=== PATIENT | male | born 1935 | race Caucasian/White ===

== ENCOUNTER 2017-01-26 08:18 | Emergency (ER) | payer OTHER ==
[~2017-01-26] VITALS: Ht 167.6 cm; Wt 84.0 kg
[2017-01-26 08:21] VITALS: Ht 167.6 cm; Wt 84.0 kg
[2017-01-26 09:16] LABS: BASOPHILS % 0.7 % (0.0-2.0); EOSINOPHILS % 0.3 % (0.0-7.0); LYMPHOCYTES % 15.9 % (15.0-51.0); MEAN CORPUSCULAR HEMOGLOBIN 28.1 pg (29.0-33.0); MEAN CORPUSCULAR HGB CONC 33.3 g/dl (32.0-37.0); MEAN CORPUSCULAR VOLUME 84.4 fl (82.0-101.0); MEAN PLATELET VOLUME 10.1 fl (7.4-10.4); MONOCYTE # 0.6 10^3/ul (0.3-0.9); MONOCYTES % 9.5 % (0.0-11.0); NEUTROPHIL # 4.4 10^3/ul (1.6-7.5); NEUTROPHILS % 73.3 % (39.0-77.0); PLATELET COUNT 248 10^3/UL (140-415); RED BLOOD COUNT 5.69 10^6/ul (4.70-6.10); RED CELL DISTRIBUTION WIDTH 13.4 % (11.5-14.5)
--- NOTE | 2017-01-26 09:23 | ERD ---
ER Documentation Chief Complaint Chief Complaint painful urination since may, urinary retention, next urologist appt. 02/05 HPI This is a 81-year-old Hungarian-speaking male with a history of hypertension and benign prostatic hypertrophy. The patient takes Flomax on a daily basis 0.4 mg. Patient ran out of his Flomax 48 hours prior to arrival. He indicates that he has had decreased urinary output for the past 6 days. Indicated 10 minutes prior to arrival he was able to urinate but only for drops. There is been no hematuria. He has had no fevers no shaking or chills. He is scheduled to see his urologist on February 05, 2017 for a medication refill of his Flomax. He presents to the emergency department today for urinary retention and mild abdominal distention. He denies any back pain. He denies any chest pain or pressure that radiates the neck arm back or jaw. He does indicate that when he is able to urinate several drops it is very painful. ROS All systems reviewed and are negative except as per history of present illness. Medications Home Meds Active Scripts Tamsulosin Hcl* (Flomax*) 0.4 Mg Cap.er.24h, 0.4 MG PO QPM, #30 CAP Prov:TIFFANIE MATOS 01/26/17 Ciprofloxacin Hcl* (Ciprofloxacin Hcl*) 500 Mg Tablet, 500 MG PO BID for 7 Days , TAB Prov:TIFFANIE MATOS 01/26/17 Allergies Allergies: Coded Allergies: No Known Allergy (Unverified , 01/26/17) PMhx/Soc History of Surgery: Yes (abdominal hernia repair) Anesthesia Reaction: No Hx Neurological Disorder: No Hx Respiratory Disorders: No Hx Cardiac Disorders: No Hx Psychiatric Problems: No Hx Miscellaneous Medical Probl: Yes (bph) Hx Alcohol Use: No Hx Substance Use: No Hx Tobacco Use: No Smoking Status: Former smoker Physical Exam Vitals Vital Signs Date Time Temp Pulse Resp B/P Pulse Ox O2 Delivery O2 Flow Rate FiO2 01/26/17 08:21 97.6 110 18 195/104 96 Physical Exam Constitutional:Well-developed. Well-nourished. HEENT:Normocephalic. Atraumatic.Pupils were equal round reactive to light. Moist mucous membranes.No tonsillar exudates. Neck: No nuchal rigidity. No lymphadenopathy. No posterior cervical spine tenderness or step-offs. Respiratory: Not using accessory muscles of respiration.Lungs were clear to auscultation bilaterally. No rhonchi. No rales. No wheezing. Cardiovascular: Regular rate regular rhythm.No murmurs. No rubs were appreciated.S1, S2 normal. Distal pulses are palpable 2+ bilaterally. GI: Abdomen was soft. Nontender. There was palpable with mild tenderness. No pulsatile abdominal masses or bruits. No rebound. No guarding. Bowel sounds were present and normal. : No urethral meatus or abnormal lesions of the genital region. No testicular tenderness or swelling. Muscle skeletal: Full range of motion of both the upper and lower extremities bilaterally.Normal muscle tone.No assymetrical calf tenderness or swelling. Skin: No petechia, no purpura. No lesions on the palms or the soles of the feet. No maculopapular rash. NEURO: Patient was alert, awake, orientated x3.No facial droop. Gait observed and normal with no ataxia.Speech had regular rate and rhythm. No focal neurological deficits. Result Diagram: 01/26/17 0901/26/17 09 Results 24 hrs Laboratory Tests Test 01/26/17 09:00 White Blood Count 6.010^3/ul Red Blood Count 5.6910^6/ul Hemoglobin 16.0g/dl Hematocrit 48.0% Mean Corpuscular Volume 84.4fl Mean Corpuscular Hemoglobin 28.1pg Mean Corpuscular Hemoglobin Concent 33.3g/dl Red Cell Distribution Width 13.4% Platelet Count 18648^3/UL Mean Platelet Volume 10.1fl Neutrophils % 73.3% Lymphocytes % 15.9% Monocytes % 9.5% Eosinophils % 0.3% Basophils % 0.7% Nucleated Red Blood Cells % 0.0/100WBC Neutrophils # 4.410^3/ul Lymphocytes # 1.010^3/ul Monocytes # 0.610^3/ul Eosinophils # 0.010^3/ul Basophils # 0.010^3/ul Nucleated Red Blood Cells # 0.010^3/ul Prothrombin Time 12.5Sec Prothrombin Time Ratio 1.0 INR International Normalized Ratio 0.93 Activated Partial Thromboplast Time 30.1Sec Urine Color STRAW Urine Clarity CLEAR Urine pH 7.0 Urine Specific [place] 1.005 Urine Ketones NEGATIVEmg/dL Urine Nitrite NEGATIVEmg/dL Urine Bilirubin NEGATIVEmg/dL Urine Urobilinogen NEGATIVEmg/dL Urine Leukocyte Esterase NEGATIVELeu/ul Urine Hemoglobin NEGATIVEmg/dL Urine Glucose NEGATIVEmg/dL Urine Total Protein NEGATIVEmg/dl Sodium Level 142mmol/L Potassium Level 3.6mmol/L Chloride Level 101mmol/L Carbon Dioxide Level 28mmol/L Anion Gap 17 Blood Urea Nitrogen 16mg/dl Creatinine 0.97mg/dl Glucose Level 131mg/dl Calcium Level 9.8mg/dl Total Bilirubin 0.3mg/dl Direct Bilirubin 0.00mg/dl Indirect Bilirubin 0.3mg/dl Aspartate Amino Transf (AST/SGOT) 32IU/L Alanine Aminotransferase (ALT/SGPT) 39IU/L Alkaline Phosphatase 114IU/L Total Protein 8.0g/dl Albumin 4.4g/dl Globulin 3.60g/dl Albumin/Globulin Ratio 1.22 Current Medications Medications (Trade) Dose Ordered Sig/Lindsey Route PRN Reason Start Time Stop Time Status Last Admin Dose Admin Tamsulosin HCl (Flomax) 0.4 mg ONCE ONCE PO 01/26/17 09:30 01/26/17 09:42 DC Clonidine (Catapres) 0.1 mg ONCE ONCE PO 01/26/17 09:30 01/26/17 09:42 DC Procedures/MDM This is a very pleasant 81-year-old male that presented to the emergency department with urinary retention. He does have a known history of BPH and ran out of his Flomax. He was given 0.4 mg of Flomax in the emergency department. A Rider catheter was placed with urinary output. This patient presented to the emergency department with severely elevated blood pressure. My differential diagnosis included but was not limited to conditions that could end-organ damage such as acute coronary syndrome, acute pulmonary edema, aortic dissection, subarachnoid hemorrhage, intracerebral hemorrhage, cerebral infarction, withdrawal syndromes from beta blockers, or states of catecholamine excess such as pheochromocytoma or drug intoxication. Ancillary lab work was obtained. There was no elevation in the BUN and creatinine to suggest acute renal failure. Electrolytes were normal. Cardiac enzyme was normal and the 12 lead EKG showed no acute ischemic changes or left ventricular hypertrophy. 12 Lead EKG tracing ordered and reviewed by myself showed: Normal sinus rhythm of 92 bpm and no arrhythmia. W[place] interval elongated 248 ms with first-degree AV block QRS duration normal. No ST segment elevation No ST segment depression. No changes consistent with acute ischemia. Given that the patient had an absence of cerebral, ocular, cardiac or renal damage the hypertensive urgency was treated with oral agents in the emergency room with improvement of the patient's blood pressure. The patient likely appeared to be complaint with primary care physician and will follow up with their PCP in the next 24-48 hours. They were instructed to return to the emergency department at anytime if there is any worsening of their condition such as development of chest pain or a headache. They were instructed to resume previous medication regimen or initiate a suitable medication regimen under care of the PCP to enable proper monitoring for drug reactions. The patient was also informed on the adverse side effects and adverse drug interactions of the medications prescribed to them by myself. The patient gave informed consent to the prescription of the new medication. I did feel the patient be safely discharged home with a Rider catheter as he does have urology appointment follow-up in the next 10 days. He was sent home with ciprofloxacin after urine culture was obtained. The patient was discharged home in fair condition. They were instructed to return to the emergency department at any time if there was any worsening of their condition. The patient stated they would follow up with their PCP in the next 24-48 hours to initiate a suitable medication regimen under the care of their PCP as well as to allow their PCP to monitor any drug reactions. The patient was discharged home with prescriptions after they gave informed consent to the new medication. They were also fully informed by myself on the adverse effects and adverse drug interactions in order to provide adequate safeguards to prevent possible adverse reactions to medications. Departure Diagnosis: Primary Impression: Urinary retention Additional Impression: Hypertensive urgency Condition: Fair TIFFANIE MATOS Jan 26, 2017 09:23
[2017-01-26] MEDS ORDERED: TAMSULOSIN (SR) 0.4 MG CAP PO ONE (09:30)
[2017-01-26 09:33] LABS: ADD UMIC NO; UR ASCORBIC ACID NEGATIVE (NEGATIVE); UR BILIRUBIN (Dip) NEGATIVE (NEGATIVE); UR BLOOD (Dip) NEGATIVE (NEGATIVE); UR CLARITY CLEAR (CLEAR); UR COLOR STRAW (YELLOW); UR GLUCOSE (Dip) NEGATIVE (NEGATIVE); UR KETONES (Dip) NEGATIVE (NEGATIVE); UR LEUKOCYTE ESTERASE (Dip) NEGATIVE Leu/ul (NEGATIVE); UR NITRITE (Dip) NEGATIVE (NEGATIVE); UR SPECIFIC GRAVITY (Dip) 1.005 (1.003-1.030); UR TOTAL PROTEIN (Dip) NEGATIVE (NEGATIVE); UR UROBILINOGEN (Dip) NEGATIVE (NEGATIVE)
[2017-01-26 09:42] LABS: INR 0.93; PARTIAL THROMBOPLASTIN TIME 30.1 Sec (25.0-35.0); PROTIME 12.5 Sec (12.2-14.2)
[2017-01-26] MEDS ORDERED: CIPR500T4 PO (09:47)
[2017-01-26] MEDS ORDERED: TAMS-14 PO (09:47)
[2017-01-26 09:48] LABS: ALBUMIN 4.4 g/dl (3.3-4.9); ALBUMIN/GLOBULIN RATIO 1.22; BILIRUBIN,INDIRECT 0.3 mg/dl (0-1.1); BILIRUBIN,TOTAL 0.3 mg/dl (0.2-1.3); CALCIUM 9.8 mg/dl (8.4-10.2); CREATININE 0.97 mg/dl (0.61-1.24); POTASSIUM 3.6 mmol/L (3.5-5.1)
[2017-01-26 09:56] LABS: CREATINE KINASE 77 IU/L (23-200)
[2017-01-26 10:12] LABS: CK-MB 1.67 ng/ml (0.0-2.4); TROPONIN-I < 0.012 ng/ml (0.00-0.12)
[2017-01-26 10:54] VITALS: BP 139/80; PULSE 94; RESP 18
== END 2017-01-26 11:24 | disposition home or self-care (01) ==
LOC: E/R 08:18
DX: R33.9 Retention of urine, unspecified (principal); I16.0 Hypertensive urgency; I10 Essential (primary) hypertension; R07.9 Chest pain, unspecified; Z87.891 Personal history of nicotine dependence
CPT/HCPCS: 80053; 81003; 82550; 82553; 84484; 85025; 85610; 85730; 87086; 93005; Z7502; Z7610

== ENCOUNTER 2017-02-09 08:32 | Emergency (ER) | payer OTHER ==
[~2017-02-09] VITALS: Wt 83.3 kg
[~2017-02-09 08:32] MED LIST: CIPR500T4 PO; TAMS-14 PO
[2017-02-09 10:01] LABS: ADD UMIC YES; UR ASCORBIC ACID NEGATIVE (NEGATIVE); UR BILIRUBIN (Dip) NEGATIVE (NEGATIVE); UR BLOOD (Dip) 3+ mg/dL (NEGATIVE); UR CLARITY SLIGHTLY CLOUDY (CLEAR); UR COLOR RED (YELLOW); UR GLUCOSE (Dip) NEGATIVE (NEGATIVE); UR KETONES (Dip) NEGATIVE (NEGATIVE); UR LEUKOCYTE ESTERASE (Dip) TRACE Leu/ul (NEGATIVE); UR NITRITE (Dip) NEGATIVE (NEGATIVE); UR RBC > 182 /HPF (0-5); UR SPECIFIC GRAVITY (Dip) 1.009 (1.003-1.030); UR TOTAL PROTEIN (Dip) 1+ mg/dl (NEGATIVE); UR UROBILINOGEN (Dip) NEGATIVE (NEGATIVE)
[2017-02-09] MEDS ORDERED: SOD CHLORIDE 0.9% 1,000 ML IV STA (10:20)
[2017-02-09 11:21] LABS: CALCIUM 9.3 mg/dl (8.4-10.2); CREATININE 0.96 mg/dl (0.61-1.24); POTASSIUM 4.3 mmol/L (3.5-5.1)
[2017-02-09] MEDS ORDERED: SOD CHLORIDE 0.9% 100 ML ONE (11:40)
[2017-02-09] MEDS ORDERED: IODIXANOL LOCM 100 ML BTL ONE (11:40)
--- NOTE | 2017-02-09 12:06 | RADRPT ---
PROCEDURE: CT Abdomen and Pelvis with contrast. CLINICAL INDICATION: Abdominal pain; painless hematuria TECHNIQUE: CT scan of the abdomen and pelvis with contrast was performed on a multidetector high-r esolution CT scanner. Coronal and sagittal reformatted images were obtained from the axial source im ages. Images were reviewed on a high-resolution PACS workstation. 80 cc of Isovue 300 iodinated cont rast was administered intravenously without reported complication. The total exam CTDI equals 17 mG y and the total exam DLP equals 1078 mGy-cm. One or more of the following dose reduction techniques were used: Automated exposure control, Adjustment of the mA and/or kV according to patient size, an d/or use of iterative reconstruction technique. DICOM images are available. COMPARISON: None. FINDINGS: Left lower lobe calcified granuloma. No suspicious hepatic mass. Mild scattered ascites. Portal vein is patent. No pancreatic ductal dila tation. Scattered hepatic and splenic calcifications. Cholelithiasis without focal pericholecystic inflammatory changes. Adrenals are unremarkable. Moderate right hydronephrosis and hydroureter. Mild left hydroureter. No obstructing renal stone. Bi lateral renal cysts. Additional smaller subcentimeter bilateral renal hypodensities are too small to characterize. No bowel obstruction. Normal-caliber appendix. No significant retroperitoneal lymphadenopathy or evidence of pneumoperitoneum. Enlarged prostate with circumferential wall thickening of the bladder. Rider catheter in place. Aortoiliac atherosclerosis. Lower lumbar spine degenerative changes. IMPRESSION: Enlarged prostate with circumferential wall thickening of the bladder. The bladder wall thickening c ould be due to cystitis or sequela of chronic bladder outlet obstruction. Underlying neoplasm is not excluded and correlation with cystoscopy can be obtained if warranted. Moderate right hydronephrosis and hydroureter. Mild left hydroureter. Cholelithiasis. Scattered mild ascites. RPTAT: AA .Lloyd Huitron MD, MD Date Time Electronically viewed and signed by .Lloyd Huitron MD, on 02/09/2017 12:06 .T/
[2017-02-09] MEDS ORDERED: TAMS-14 PO (12:28)
--- NOTE | 2017-02-09 12:32 | ERD ---
ER Documentation Chief Complaint Chief Complaint indwelling fc x2 wks, painful w blood in urine HPI This is 81-year-old male who is complaining hematuria for the past 3 days. The patient had an indwelling Rider for 12 days due to urinary retention secondary to enlarged prostate. Patient was given antibiotics when it was placed but he has no fever no suprapubic pain or back pain. The patient is here because he wants his catheter removed. The patient saw urologist on Thursday but they would not remove it unless he had approval from the insurance. ROS All systems reviewed and are negative except as per history of present illness. Medications Home Meds Active Scripts Tamsulosin Hcl* (Flomax*) 0.4 Mg Cap.er.24h, 0.4 MG PO QPM, #30 CAP Prov:NIC FLORES DO 02/09/17 Tamsulosin Hcl* (Flomax*) 0.4 Mg Cap.er.24h, 0.4 MG PO QPM, #30 CAP Prov:TIFFANIE MATOS 01/26/17 Ciprofloxacin Hcl* (Ciprofloxacin Hcl*) 500 Mg Tablet, 500 MG PO BID for 7 Days , TAB Prov:TIFFANIE MATOS 01/26/17 Allergies Allergies: Coded Allergies: No Known Allergy (Unverified , 01/26/17) PMhx/Soc History of Surgery: Yes (abdominal hernia repair) Anesthesia Reaction: No Hx Neurological Disorder: No Hx Respiratory Disorders: No Hx Cardiac Disorders: No Hx Psychiatric Problems: No Hx Miscellaneous Medical Probl: Yes (bph) Hx Alcohol Use: No Hx Substance Use: No Hx Tobacco Use: No Smoking Status: Never smoker FmHx Family History: No coronary disease Physical Exam Vitals Vital Signs Date Time Temp Pulse Resp B/P Pulse Ox O2 Delivery O2 Flow Rate FiO2 02/09/17 10:52 86 18 167/82 97 Room Air 02/09/17 08:41 98.1 128 20 204/78 99 Physical Exam Const: Well-developed, well-nourished Head: Atraumatic, normocephalic Eyes: Normal Conjunctiva, PERRLA, EOMI, normal sclera, no nystagmus ENT: Normal External Ears, Nose and Mouth, moist mucus membranes. Neck: Full range of motion. No meningismus, no lymphadenopathy. Resp: Clear to auscultation bilaterally, no wheezing, rhonchi, rales Cardio: Regular rate and rhythm, no murmurs, S1 S2 present Abd: Soft, non tender x 4, non distended. Normal bowel sounds, no guarding or rebound, no pulsitile abdominal masses or bruits, and indwelling Rider with very slight amount of material in the leg bag Skin: No petechiae or rashes, no ecchymosis , no maculopapular rash Back: No midline or flank tenderness Ext: No cyanosis, or edema, FROM x 4, normal inspection, neurovascularly intact x 4 Neur: Awake and alert, STR 5/5 x 4, sensation intact x 4, no focal findings, cerebellum intact Psych: Normal Mood and Affect Result Diagram: 02/09/17 1035 Results 24 hrs Laboratory Tests Test 02/09/17 09:23 02/09/17 10:35 Urine Color RED Urine Clarity SLIGHTLY CLOUDY Urine pH 7.0 Urine Specific [place] 1.009 Urine Ketones NEGATIVEmg/dL Urine Nitrite NEGATIVEmg/dL Urine Bilirubin NEGATIVEmg/dL Urine Urobilinogen NEGATIVEmg/dL Urine Leukocyte Esterase TRACELeu/ul Urine Microscopic RBC > 182/HPF Urine Microscopic WBC 1/HPF Urine Hemoglobin 3+mg/dL Urine Glucose NEGATIVEmg/dL Urine Total Protein 1+mg/dl Sodium Level 142mmol/L Potassium Level 4.3mmol/L Chloride Level 102mmol/L Carbon Dioxide Level 33mmol/L Anion Gap 11 Blood Urea Nitrogen 17mg/dl Creatinine 0.96mg/dl Glucose Level 110mg/dl Calcium Level 9.3mg/dl Current Medications Medications (Trade) Dose Ordered Sig/Lindsey Route PRN Reason Start Time Stop Time Status Last Admin Dose Admin Sodium Chloride (NS) 1,000 ml @ 1,000 mls/hr Q1H STAT IV 02/09/17 10:20 02/09/17 11:19 DC 02/09/17 10:51 IV Flush 10 ml 10 ml STK-MED ONCE .ROUTE 02/09/17 11:40 02/09/17 11:41 DC Sodium Chloride (NS) 100 ml @ ud STK-MED ONCE .ROUTE 02/09/17 11:40 02/09/17 11:41 DC Iodixanol (Visipaque Locm) 100 ml STK-MED ONCE .ROUTE 02/09/17 11:40 02/09/17 11:41 DC Procedures/MDM PROCEDURE: CT Abdomen and Pelvis with contrast. CLINICAL INDICATION: Abdominal pain; painless hematuria TECHNIQUE: CT scan of the abdomen and pelvis with contrast was performed on a multidetector high-resolution CT scanner. Coronal and sagittal reformatted images were obtained from the axial source images. Images were reviewed on a high-resolution PACS workstation. 80 cc of Isovue 300 iodinated contrast was administered intravenously without reported complication. The total exam CTDI equals 17 mGy and the total exam DLP equals 1078 mGy-cm. One or more of the following dose reduction techniques were used: Automated exposure control, Adjustment of the mA and/or kV according to patient size, and/or use of iterative reconstruction technique. DICOM images are available. COMPARISON: None. FINDINGS: Left lower lobe calcified granuloma. No suspicious hepatic mass. Mild scattered ascites. Portal vein is patent. No pancreatic ductal dilatation. Scattered hepatic and splenic calcifications. Cholelithiasis without focal pericholecystic inflammatory changes. Adrenals are unremarkable. Moderate right hydronephrosis and hydroureter. Mild left hydroureter. No obstructing renal stone. Bilateral renal cysts. Additional smaller subcentimeter bilateral renal hypodensities are too small to characterize. No bowel obstruction. Normal-caliber appendix. No significant retroperitoneal lymphadenopathy or evidence of pneumoperitoneum. Enlarged prostate with circumferential wall thickening of the bladder. Rider catheter in place. Aortoiliac atherosclerosis. Lower lumbar spine degenerative changes. IMPRESSION: Enlarged prostate with circumferential wall thickening of the bladder. The bladder wall thickening could be due to cystitis or sequela of chronic bladder outlet obstruction. Underlying neoplasm is not excluded and correlation with cystoscopy can be obtained if warranted. Moderate right hydronephrosis and hydroureter. Mild left hydroureter. Cholelithiasis. Scattered mild ascites. RPTAT: AA .Lloyd Huitron MD, Date Time Electronically viewed and signed by .Lloyd Huitron MD, MD on 02/09/2017 12:06 .T/ CC: NIC FLORES DO The patient does not have a UTI. I did examine him with a CAT scan which shows an thickened bladder wall which needs evaluation by urology. No renal abscess or gross renal pathology. Discussed with the patient at length and he wants his catheter removed today despite knowing that he may develop urinary retention again. I will have him follow-up with Dr. wild of urology for his cystoscopy. I gave him a copy of his CAT scan report Departure Diagnosis: Primary Impression: Hematuria Hematuria type: unspecified type Qualified Code: R31.9 - Hematuria, unspecified type Additional Impression: Encounter for Rider catheter removal Condition: Stable Patient Instructions: Rider Catheter Removal, Hematuria Referrals: MELANY KRUEGER MD, APOSTOLOS A. DO Feb 09, 2017 12:32
[2017-02-09 13:53] VITALS: BP 167/71; PULSE 79; RESP 20
== END 2017-02-09 14:15 | disposition home or self-care (01) ==
LOC: E/R 08:32
DX: R31.9 Hematuria, unspecified (principal); Z46.6 Encounter for fitting and adjustment of urinary device
CPT/HCPCS: 74177; 80048; 81001; 87086; J7030; Q9967; Z7502; Z7610

== ENCOUNTER 2017-04-29 16:01 | Emergency (ER) | END 2017-04-29 23:21 | disposition left against medical advice (07) ==

== ENCOUNTER 2017-05-21 20:06 | Emergency (ER) | END 2017-05-22 00:24 | disposition home or self-care (01) ==